=== PATIENT | female | born 1980 | race Caucasian/White ===

== ENCOUNTER → 2020-08-27 15:49 | Outpatient (CLI) | payer BC, SELFPAY ==
--- NOTE | ~2020-08-27 | MM_ITS ---
EXAMINATION: MM scrn julisa implant BI w jeanine HISTORY: Screening mammogram TECHNIQUE: Craniocaudal and mediolateral oblique 3-D tomosynthesis images with implant displacement a nd synthetic 2-D images were generated. Craniocaudal and mediolateral oblique views of the breasts wi thout implant displacement were obtained using full field digital mammography. CAD analysis was submi tted and interpreted. COMPARISON: 03/01/2018 limited left breast ultrasound 05/10/2016 bilateral diagnostic implant digital mammogram and limited right breast ultrasound BREAST PARENCHYMAL COMPOSITION: The breasts are heterogeneously dense, which may obscure small masses . FINDINGS: Status post bilateral augmentation mammoplasty. Approximately 8 mm circumscribed opacity in the anterior aspect of the inner mid right breast, with h niles sign. Approximately 8 mm partially circumscribed opacity at mid depth in the mid outer left breast. Approximately 14 mm circumscribed opacity in the inner mid left breast, with halo sign. There is no evidence of suspicious mass, calcification, or architectural distortion to suggest malign kt in either breast. There has been no suspicious interval change. IMPRESSION: 1. Bilateral breast masses 2. Bilateral diagnostic mammography and bilateral breast ultrasound examination are recommended. BI-RADS Category 0: Incomplete: Needs additional imaging evaluation. Reviewed, dictated and finalized at location A. [employer]
== END ==
PROVIDERS: Visit Provider Nurse Practitioner Obstetrics & Gynecology
DX: Z12.31 Encounter for screening mammogram for malignant neoplasm of breast (principal); R92.8 Other abnormal and inconclusive findings on diagnostic imaging of breast
CPT/HCPCS: 77063; 77067

== ENCOUNTER → 2020-09-27 08:51 | Outpatient (CLI) | payer BC, SELFPAY ==
--- NOTE | ~2020-09-27 | MMUS_ITS ---
EXAMINATION: MM diag julisa implant BI w jeanine, US breast BI complete HISTORY: Bilateral breast masses reported on 08/27/2020 bilateral implant digital screening mammogram TECHNIQUE: Additional 3-D tomosynthesis images of both breasts were performed and synthetic 2-D image s were generated. CAD analysis was submitted and interpreted. High resolution bilateral complete srinath st ultrasound was performed. COMPARISON: 08/27/2020 bilateral implant digital screening mammogram FINDINGS: MAMMOGRAPHIC FINDINGS: Right breast: In the central deep right breast there is a 9 mm circumscribed low-density radiopacity, having benign mammographic features (right MLO Tomosynthesis image 20/39). Another circumscribed approximately 7.5 mm low-density opacity is noted in the inner mid right breast (craniocaudal Tomosynthesis image 18/37, MLO Tomosynthesis image 21/39). These have benign mammographic features. Left breast: Approximately 7.2 mm circumscribed opacity is noted in the central mid outer left breast (ML Tomosynt hesis image 13/39). 1.4 cm circumscribed low-density benign-appearing lesion with halo sign is noted in the inner mid lef t breast (MLO Tomosynthesis image 19/39). ULTRASOUND: Right breast: There are 2 contiguous subareolar cyst measuring 7 x 7 mm and 6.4 x 10 mm dimension, with through tr ansmission posterior enhancement, consistent with cysts 9:00 1 cm from nipple: 3 mm simple cyst Right subareolar irregular approximately 4 mm mass with posterior shadowing, suspicious for malignanc y. Ultrasound-guided biopsy is recommended. Left breast: 12:00: 5 mm simple cyst 2:00 1 cm from nipple: 5 x 8 mm simple cyst and 2 x 3 mm simple cyst 11:00 3 cm from nipple: Parallel circumscribed 6 x 15 mm cyst IMPRESSION: 1. Right subareolar irregular 4 mm mass with posterior shadowing, suspicious for malignancy. Ultrasou nd-guided biopsy is recommended 2. Bilateral breast cysts BI-RADS category 4, suspicious findings. Recommendation: Ultrasound-guided biopsy of right subareolar 4 mm irregular posterior shadowing mass Dr. Corona telephoned the report and ultrasound guided biopsy recommendation for the right breast subar eolar 4 mm mass to Rosemarie, Manager Interventional, on 09/27/2020 at 1155 hours Reviewed, dictated and finalized at location A. [employer] IMPRESSION: 1. Right subareolar irregular 4 mm mass with posterior shadowing, suspicious fo r malignancy. Ultrasound-guided biopsy is recommended 2. Bilateral breast cysts BI-RADS category 4, suspicious findings. Recommendation: Ultrasound-guided biopsy of right subareolar 4 mm irregular pos terior shadowing mass Dr. Corona telephoned the report and ultrasound guided biopsy recommendation for the right breast subareolar 4 mm mass to Rosemarie, Manager Interventional, on 09/27 at 1155 hours
== END ==
PROVIDERS: Visit Provider Nurse Practitioner Obstetrics & Gynecology
DX: R92.8 Other abnormal and inconclusive findings on diagnostic imaging of breast (principal)
CPT/HCPCS: 76641; 77062; 77066; G0279

== ENCOUNTER → 2022-07-06 10:31 | Outpatient (CLI) | payer BC, SELFPAY ==
--- NOTE | ~2022-07-06 | MM_ITS ---
EXAMINATION: MM scrn julisa implant BI w jeanine HISTORY: Screening mammogram TECHNIQUE: Craniocaudal and mediolateral oblique 3-D tomosynthesis images with implant displacement a nd synthetic 2-D images were generated. Craniocaudal and mediolateral oblique views of the breasts wi thout implant displacement were obtained using full field digital mammography. CAD analysis was submi tted and interpreted. COMPARISON: 09/27/2020 bilateral implant diagnostic mammogram and complete bilateral breast ultrasoun d 08/27/2020 bilateral implant screening mammogram BREAST PARENCHYMAL COMPOSITION: The breasts are heterogeneously dense, which may obscure small masses . FINDINGS: Status post bilateral augmentation mammoplasty. 8 mm low-density circumscribed opacity with halo sign in the inner mid left breast, consistent with b enign process, most likely benign cysts. Benign calcified microhematomas on the right. There is no evidence of suspicious mass, calcification, or architectural distortion to suggest malignancy in either breast. There has been no suspicious int erval change. IMPRESSION: 1. No mammographic evidence of malignancy. 2. Recommend routine screening mammography in one year. BI-RADS Category 2: Benign finding(s). Reviewed, dictated and finalized at location A.
== END ==
PROVIDERS: PCP Family Medicine; Visit Provider Nurse Practitioner Obstetrics & Gynecology
DX: Z12.31 Encounter for screening mammogram for malignant neoplasm of breast (principal)
CPT/HCPCS: 77063; 77067